=== PATIENT | female | born 1945 | race Hispanic/Latino ===

== ENCOUNTER 2021-05-18 06:37 | Observation (INO) | payer OTHER, MEDICARE ==
[2021-05-15 12:37] LABS: BASOPHILS % (AUTO) 0.5 % (0.0-5.0); EOSINOPHILS % (AUTO) 0.5 % (0.0-8.0); LYMPHOCYTES % (AUTO) 28.5 % (21.0-51.0); MEAN CORPUSCULAR HEMOGLOBIN 25.4 pg (27.0-33.0); MEAN CORPUSCULAR VOLUME 81.8 fL (79-99); MONOCYTES % (AUTO) 7.7 % (3.0-13.0); NEUTROPHILS % (AUTO) 62.6 % (40.0-77.0); PLATELET COUNT (AUTO) 241 K/uL (130-400); RED BLOOD CELL COUNT(AUTO) 4.77 MIL/uL (4.00-5.50); RED CELL DISTRIBUTION WIDTH 14.2 % (11.0-15.5); WHITE BLOOD COUNT (AUTO) 5.8 K/uL (4.8-10.8)
[2021-05-15 12:45] LABS: CREATININE 0.8 mg/dL (0.5-1.5); POTASSIUM 3.3 mmol/L (3.5-5.1)
[2021-05-17 11:59] VITALS: BP 166/75
[~2021-05-18] VITALS: Ht 162.6 cm; Wt 87.9 kg
[2021-05-18] VITALS (24 sets, daily range): BP systolic 122–166; BP diastolic 53–87
[~2021-05-18 06:37] MED LIST: CEPH500C2 PO; DICL50TA9 PO; FERR-82 PO; GABAPENTIN PO; LOSA1TAB54 PO; METF-446 PO; MIRA50TA PO; MULT-1258 PO; ROSU20TA31 PO; SERT-440 PO; VITAMIN B12 PO
[2021-05-18] MEDS ORDERED: LIDOCAINE 1%-EPI 1:100,000 20 ML VIAL IJ ONE (07:06)
[2021-05-18] MEDS ORDERED: 0.9%NACL 1000ML 1,000 ML IV ONE (07:28)
[2021-05-18] MEDS ORDERED: CEFAZOLIN SODIUM 1 GM VIAL ONE (07:47)
[2021-05-18] MEDS ORDERED: SUCCINYLCHOLINE 200MG/10ML SYR ONE (07:53)
[2021-05-18] MEDS ORDERED: LIDOCAINE PF 100MG/5ML (2%) SYRINGE 5ML ONE ×2 (07:53→09:43)
[2021-05-18] MEDS ORDERED: PROPOFOL 10 MG/ML 20ML VIAL IV ONE (07:54)
[2021-05-18] MEDS ORDERED: FENTANYL CITRATE PF 50 MCG/1 ML 2ML VIAL ONE (07:54)
[2021-05-18] MEDS ORDERED: ROCURONIUM 10MG/1ML SYR 10 MG/ML ML ONE (07:54)
[2021-05-18] MEDS ORDERED: MIDAZOLAM HCL 1 MG/ML 2ML VIAL ONE (07:56)
[2021-05-18] MEDS ORDERED: CEFAZOLIN SODIUM 2 GM VIAL IV ONE (08:10)
[2021-05-18] MEDS ORDERED: LIDOCAINE HCL/EPINEPHRINE 50 ML VIAL IJ ONE (08:16)
[2021-05-18] MEDS ORDERED: EPHEDRINE SULFATE 50 MG/ML AMPULE ONE (08:24)
[2021-05-18] MEDS ORDERED: NEOSTIGMINE 5MG/5ML SYR IV ONE (09:42)
[2021-05-18] MEDS ORDERED: GLYCOPYRROLATE 1 MG/5 ML SYRINGE ONE (09:42)
[2021-05-18] MEDS ORDERED: KETOROLAC 30MG VIAL (30MG/ML) ONE (09:42)
[2021-05-18] MEDS ORDERED: ONDANSETRON 4MG INJ ONE (09:42)
[2021-05-18] MEDS ORDERED: BACITRACIN 28.4 GM OINT TP ONE (09:49)
[2021-05-18] MEDS ORDERED: 0.9%NACL 10ML VIAL IVP PRN (15:30)
[2021-05-18] MEDS ORDERED: PROMETHAZINE HCL 25 MG TABLET PO PRN (15:30)
[2021-05-18] MEDS ORDERED: ACETAMINOPHEN WITH CODEINE 1 TAB TAB PO PRN (16:00)
[2021-05-18] MEDS: DOCUSATE SODIUM 100 MG CAP PO SCH (16:29)
[2021-05-18] MEDS: CEPHALEXIN 500 MG CAPSULE PO SCH ×2 (16:29→22:32)
[2021-05-18] MEDS: CALCIUM CARB 500MG CHEW TAB PO SCH (19:34)
[2021-05-18] MEDS ORDERED: DIPHENHYDRAMINE HCL 25 MG CAPSULE PO PRN (21:00)
[2021-05-19] VITALS: BP 140/55
[2021-05-19] MEDS: CALCIUM CARB 500MG CHEW TAB PO SCH ×3 (00:55→10:55)
[2021-05-19 02:03] VITALS: BP 140/55
[2021-05-19] MEDS: CEPHALEXIN 500 MG CAPSULE PO SCH ×2 (04:23→10:54)
[2021-05-19 08:00] VITALS: BP 159/63
[2021-05-19] MEDS ORDERED: METFORMIN HCL 500 MG TAB.SR.24H PO SCH (08:00)
[2021-05-19] MEDS: DOCUSATE SODIUM 100 MG CAP PO SCH (08:43)
[2021-05-19] MEDS ORDERED: SERTRALINE HCL 50 MG TABLET PO SCH (09:00)
[2021-05-19] MEDS ORDERED: **HM** MYRBETRIQ 50MG PO SCH (09:00)
[2021-05-19] MEDS ORDERED: FERROUS SULFATE 325 MG TABLET.DR PO SCH (09:00)
[2021-05-19] MEDS ORDERED: GABAPENTIN 100 MG CAPSULE PO SCH (09:00)
[2021-05-19] MEDS ORDERED: DICLOFENAC 50 MG PO SCH (09:00)
[2021-05-19] MEDS ORDERED: SERT-439 PO (09:04)
[2021-05-19] MEDS ORDERED: GABA-529 PO (09:04)
[2021-05-19] MEDS ORDERED: PHARMACY COMMUNICATION MISC SCH (10:30)
[2021-05-19] MEDS ORDERED: CALCITRIOL 0.25 MCG CAP PO SCH (11:00)
[2021-05-19 12:00] VITALS: BP 118/59
[2021-05-19 16:00] VITALS: BP 146/68
[2021-05-19] MEDS ORDERED: ATORVASTATIN 40 MG TABLET PO SCH (21:00)
== END 2021-05-19 17:35 | disposition home or self-care (01) ==
LOC: DAH 06:37 → DAHIP 06:38 → DAH 06:38 → 3DH 11:08
PROVIDERS: ADMIT Otolaryngology; ATTEND Otolaryngology
DX: C73 Malignant neoplasm of thyroid gland (principal); Z20.822 Contact with and (suspected) exposure to COVID-19; E11.9 Type 2 diabetes mellitus without complications; I10 Essential (primary) hypertension; Z79.899 Other long term (current) drug therapy
CPT/HCPCS: 36415 ×3; 60220; 80048; 82330 ×4; 82948 ×6; 85025; 87635; 93005; A4215; A4221; A4222; A4223; A4510; A4600; A4649; A4663; A4930; A6260; C9803; G0378 ×32; J0330; J0690 ×2; J1885; J2001 ×2; J2250; J2405; J2704; J2710; J3010; J3490 ×3; J7030 ×2